=== PATIENT | female | born 2000 | race Caucasian/White ===

== ENCOUNTER 2023-12-23 09:43 | Emergency (ER) | payer OTHER | END 2023-12-23 12:22 | disposition home or self-care (01) | LOC: CSHERS 09:43 | DX: R07.81 Pleurodynia (principal) | CPT/HCPCS: 71045 ==

== ENCOUNTER 2024-01-13 21:07 | Inpatient (IN) | payer OTHER ==
[2024-01-13 22:26] LABS: #Eosinphils 0.22 10x3/uL (0.0-0.5); #Monocytes 0.73 10x3/uL (0.0-1.1); #Neutrophils 5.39 10x3/uL (1.5-8.4); %Eosinophils 2.1 % (0.0-6.0); %Lymphocytes 37.5 % (18.0-47.0); %Monocytes 7.1 % (0.0-10.0); Hematocrit 37.3 % (34.9-44.5); Hemoglobin 12.2 g/dL (12.0-15.5); Mean Corpuscular HGB CONC 32.7 g/dL (32.0-36.0); Mean Corpuscular Hemoglobin 23.1 pg (27.0-33.0); Mean Corpuscular Volume 70.6 fL (81.6-98.3); Platelet Count 423 10x3/uL (150-450); Red Blood Cell (RBC) Count 5.28 10x6/uL (3.90-5.03); White Blood Cell (WBC) Count 10.4 10x3/uL (3.5-10.5)
[2024-01-13 22:38] LABS: ALT (SGPT) 32 U/L (8-55); AST (SGOT) 23 U/L (5-34); Albumin 3.8 g/dL (3.5-5.0); Alkaline Phosphatase 96 U/L (40-110); Anion Gap 14 mmol/L (10-20); BUN (Urea Nitrogen) 17 mg/dL (7.0-18.7); Bilirubin, Total 0.2 mg/dL (0.2-1.2); Calc. Creatinine Clearance 0 mL/min (70-130); Calcium 8.8 mg/dL (7.8-10.44); Carbon Dioxide 21 mmol/L (22-29); Chloride 105 mmol/L (98-107); Estimated GFR 117; Globulin 4.3 g/dL (2.4-3.5); Glucose 95 mg/dL (70-105); Potassium 3.8 mmol/L (3.5-5.1); Protein, Total 8.1 g/dL (6.0-8.3); Sodium 136 mmol/L (136-145)
[2024-01-13 22:56] LABS: Anisocytosis SLIGHT = 6-15 cells (100X) (0-5/hpf); Microcytosis SLIGHT = 6-15 cells (100X) (0-5/hpf); Platelet Adequacy Comment Appears Adequate
[2024-01-14] MEDS ORDERED: Ondansetron PF 4 MG/2 ML Vial IVP PRN (01:19)
[2024-01-14] MEDS ORDERED: Acetaminophen 325 MG TAB PO PRN (01:20)
[2024-01-14] MEDS ORDERED: Sodium Chloride 0.9% 1,000 ML IV SCH (01:30)
[2024-01-14 03:00] VITALS: BMI 61.9
[2024-01-14] MEDS: Morphine 2 MG/ML VIAL SLOW IVP PRN (03:17)
[2024-01-14] MEDS: Vancomycin 2.5 GM, Admixture Fee 1 EACH in Sodium Chloride 0.9% 500 ML IVPB SCH (06:29)
[2024-01-14] MEDS ORDERED: Acetaminophen 500 MG TAB PO PRN (07:04)
[2024-01-14] MEDS ORDERED: Ibuprofen 600 MG TAB PO PRN (07:05)
[2024-01-14 07:33] VITALS: BP 106/54; TEMP 98.6
== END 2024-01-14 11:15 | disposition home or self-care (01) | DRG 776 ==
LOC: CSHERS 21:07 → CSHPP 23:23 → UNDOADMIN 01-14 01:03 → UNDODISIN 01-14 11:15
PROVIDERS: ADMIT Specialist; ATTEND Specialist
DX: O86.01 Infection of obstetric surgical wound, superficial incisional site (principal); Z68.44 Body mass index [BMI] 60.0-69.9, adult; Z88.1 Allergy status to other antibiotic agents; F41.9 Anxiety disorder, unspecified; F17.290 Nicotine dependence, other tobacco product, uncomplicated; E66.01 Morbid (severe) obesity due to excess calories
CPT/HCPCS: 36415; 74177; 80053; 83605; 85025; 87040; 93005; 96374; J2272; J3370; J7030